=== PATIENT | female | born 1975 | race Caucasian/White ===

== ENCOUNTER 2016-10-29 19:00 | Emergency (ER) | payer BC ==
[~2016-10-29] VITALS: Ht 157.5 cm; Wt 110.6 kg
[~2016-10-29 19:00] MED LIST: AMOXICILLIN 8751 TAB PO; CLEOCIN HCL300 MG PO; MOTRIN 800800 MG/TAB PO; NAPROXEN 3375 MG/TAB PO; NO HOME MEDICATIONS; NORCO 325 MG-51 TAB PO; PERCOCET 325 MG1 TA2 PO; TUSS PO; ZITHROMAX Z PA250 MG PO
[2016-10-29 19:02] VITALS: TEMP 98
[2016-10-29 20:09] LABS: BASO % 0.3 % (0.0-2.0); EOS # 0.1 (0.0-0.7); EOS % 1.2 % (0-4.0); GRAN # 8.6 (1.4-6.5); GRAN % 77.8 % (42.2-75.2); LYMPH # 1.3 (1.2-3.4); LYMPH % 11.8 % (20.0-51.0); MEAN CELL VOLUME 64 fl (80.0-100.0); MEAN CORPUSCULAR HGB CONC 28 g/dl (33.0-37.0); MEAN PLATELET VOLUME 10.1 fl (7.4-10.4); MONO # 0.9 (0.1-0.6); MONO % 8.4 % (1.7-9.3); PH 5 (5-8); PLATELET COUNT 374 K/mm3 (130-400); RED BLOOD COUNT 5.15 M/mm3 (4.10-5.30); REDCELL DISTRIBUTION WIDTH-CV 17.3 % (11.5-14.5); SQUAMOUS EPITHELIAL 0-2 /hpf; URINE APPEARANCE Clear; URINE BACTERIA None Seen /hpf; URINE BILIRUBIN Negative (NEGATIVE); URINE BLOOD Negative (NEGATIVE); URINE COLOR Straw; URINE GLUCOSE Negative (NEGATIVE); URINE KETONE Negative (NEGATIVE); URINE RBC 0-2 /hpf; URINE UROBILINOGEN Negative (NEGATIVE); URINE WBC 0-2 /hpf; WHITE BLOOD COUNT 11.1 K/mm3 (4.8-10.8)
[2016-10-29 20:15] LABS: HEMATOCRIT 32.8 % (37.0-47.0); HEMOGLOBIN 9.1 g/dl (12.5-16.0); MEAN CORPUSCULAR HEMOGLOBIN 18 pg (27.0-31.0)
[2016-10-29 20:21] LABS: ALBUMIN 4.4 gm/dL (3.5-5.0); BILIRUBIN,TOTAL 0.6 mg/dL (0.0-1.0); C-REACTIVE PROTEIN 0.6 mg/dL (0.0-0.9); CALCIUM 9.3 mg/dL (8.4-10.2); CREATININE, serum 0.7 mg/dL (0.52-1.25); POTASSIUM 3.5 mmol/L (3.4-5.0); TOTAL PROTEIN 7.4 gm/dL (6.4-8.2)
[2016-10-29] MEDS ORDERED: NORCO 325 MG-51 TAB PO (21:59)
[2016-10-29 22:30] VITALS: BP 112/73; PULSE 72
== END 2016-10-29 22:30 | disposition home or self-care (01) ==
LOC: COL.ER 19:00
PROVIDERS: Emergency Medicine
DX: N83.291 Other ovarian cyst, right side (principal); R10.84 Generalized abdominal pain; F17.210 Nicotine dependence, cigarettes, uncomplicated
CPT/HCPCS: J1170; J2405; J7030; Q9967

== ENCOUNTER 2017-07-06 08:41 | Outpatient (RCR) | payer OTHER | END 2017-07-09 14:00 | disposition still patient (30) | LOC: WSOH 08:41 | DX: M65.841 Other synovitis and tenosynovitis, right hand (principal); X50.3XXA Overexertion from repetitive movements, initial encounter; Y99.0 Civilian activity done for income or pay; Z90.710 Acquired absence of both cervix and uterus | CPT/HCPCS: 24091; A6549 ==

== ENCOUNTER 2017-07-30 07:30 | Outpatient (RCR) | payer OTHER | END 2017-08-12 16:44 | LOC: WSOT 07:30 | DX: M67.431 Ganglion, right wrist (principal); M65.841 Other synovitis and tenosynovitis, right hand ==

== ENCOUNTER 2018-01-19 16:15 | Outpatient (RCR) | payer OTHER | END 2018-02-01 07:56 | disposition home or self-care (01) | LOC: WSOT 16:15 | DX: Z47.89 Encounter for other orthopedic aftercare (principal); Z98.890 Other specified postprocedural states; Z90.710 Acquired absence of both cervix and uterus ==

== ENCOUNTER 2018-05-08 01:41 | Emergency (ER) | payer BC ==
[~2018-05-08] VITALS: Ht 157.5 cm; Wt 120.5 kg
[2018-05-08 01:47] VITALS: TEMP 99.6
[2018-05-08 02:30] VITALS: BP 140/86; PULSE 98
== END 2018-05-08 02:40 | disposition home or self-care (01) ==
LOC: COL.ER 01:41
DX: S61.411A Laceration without foreign body of right hand, initial encounter (principal); J45.909 Unspecified asthma, uncomplicated; Z23 Encounter for immunization; F17.210 Nicotine dependence, cigarettes, uncomplicated; Y92.59 Other trade areas as the place of occurrence of the external cause; W25.XXXA Contact with sharp glass, initial encounter

== ENCOUNTER → 2018-05-26 | Outpatient (CLI) | payer BC ==
[2018-05-26 17:41] LABS: BASO % 0.3 % (0.0-2.0); EOS # 0.2 (0.0-0.7); EOS % 1.2 % (0-4.0); GRAN # 9.8 (1.4-6.5); GRAN % 75.2 % (42.2-75.2); HEMATOCRIT 49.8 % (37.0-47.0); LYMPH % 15.2 % (20.0-51.0); MEAN CELL VOLUME 87 fl (80.0-100.0); MEAN CORPUSCULAR HEMOGLOBIN 28 pg (27.0-31.0); MEAN CORPUSCULAR HGB CONC 32 g/dl (33.0-37.0); MONO % 7.7 % (1.7-9.3); PLATELET COUNT 318 K/mm3 (130-400); RED BLOOD COUNT 5.72 M/mm3 (4.10-5.30); REDCELL DISTRIBUTION WIDTH-CV 13.5 % (11.5-14.5)
[2018-05-26 17:48] LABS: ALBUMIN 4.6 gm/dL (3.5-5.0); BILIRUBIN,TOTAL 0.6 mg/dL (0.0-1.0); CALCIUM 9.8 mg/dL (8.4-10.2); CHOLESTEROL RISK RATIO 2.9; CREATININE, serum 0.66 mg/dL (0.52-1.25)
[2018-05-26 18:19] LABS: TSH w REFLEX 1.33 uIU/mL (0.465-4.680)
== END ==
LOC: COL.LAB 17:00
PROVIDERS: Family Medicine
DX: Z13.220 Encounter for screening for lipoid disorders (principal); Z13.1 Encounter for screening for diabetes mellitus; D64.9 Anemia, unspecified; I10 Essential (primary) hypertension

== ENCOUNTER → 2018-07-14 | Outpatient (CLI) | payer BC ==
[2018-07-14 18:26] LABS: CALCIUM 9.1 mg/dL (8.4-10.2); CREATININE, serum 0.68 mg/dL (0.52-1.25); MAGNESIUM 1.9 mg/dL (1.6-2.3); POTASSIUM 3.6 mmol/L (3.4-5.0)
== END ==
LOC: COL.LAB 17:20
PROVIDERS: Family Medicine
DX: R25.2 Cramp and spasm (principal)

== ENCOUNTER 2018-08-10 07:57 | Emergency (ER) | payer BC ==
[~2018-08-10] VITALS: Ht 157.5 cm; Wt 118.2 kg
[2018-08-10] MEDS ORDERED: PRINIVIL20 MG PO (10:11)
[2018-08-10] MEDS ORDERED: CHANTIX 1MG1 MG PO (10:12)
[2018-08-10 11:08] VITALS: BP 110/57; PULSE 63; TEMP 97.8
== END 2018-08-10 11:09 | disposition home or self-care (01) ==
LOC: COL.ER 07:57
DX: J06.9 Acute upper respiratory infection, unspecified (principal); I10 Essential (primary) hypertension; Z87.891 Personal history of nicotine dependence; Z88.4 Allergy status to anesthetic agent
CPT/HCPCS: J1200; J1885; J2550; J2765; J7030

== ENCOUNTER → 2018-08-19 | Outpatient (CLI) | payer BC ==
[~2018-08-19] MED LIST changes: +CHANTIX 1MG1 MG PO; +PRINIVIL20 MG PO
== END ==
LOC: COL.CARD 07:41
DX: R00.2 Palpitations (principal)

== ENCOUNTER → 2018-09-15 | Outpatient (CLI) | payer BC ==
[2018-09-15 17:58] LABS: CALCIUM 9.5 mg/dL (8.4-10.2); CREATININE, serum 0.68 mg/dL (0.52-1.25); POTASSIUM 4.4 mmol/L (3.4-5.0)
== END ==
LOC: ZCOL.LAB 17:45
PROVIDERS: Family Medicine
DX: I10 Essential (primary) hypertension (principal)

== ENCOUNTER → 2018-09-16 | Outpatient (CLI) | payer BC | LOC: ZCOL.LAB 18:11 | DX: B36.9 Superficial mycosis, unspecified (principal) ==

== ENCOUNTER → 2018-09-29 | Outpatient (CLI) | payer BC | LOC: ZCOL.LAB 16:32 | DX: H60.311 Diffuse otitis externa, right ear (principal) ==

== ENCOUNTER 2019-03-25 16:41 | Emergency (ER) | payer BC ==
[~2019-03-25] VITALS: Ht 157.5 cm; Wt 118.2 kg
[2019-03-25 16:47] VITALS: TEMP 99.2
[2019-03-25] MEDS ORDERED: CELEXA 20MG20 MG/TAB PO (16:56)
[2019-03-25 17:42] LABS: BASO % 0.2 % (0.0-2.0); EOS # 0.1 (0.0-0.7); GRAN # 9.6 (1.4-6.5); GRAN % 78.3 % (42.2-75.2); HEMOGLOBIN 14.4 g/dl (12.5-16.0); LYMPH # 1.6 (1.2-3.4); LYMPH % 12.7 % (20.0-51.0); MEAN CELL VOLUME 86 fl (80.0-100.0); MEAN CORPUSCULAR HEMOGLOBIN 28 pg (27.0-31.0); MEAN CORPUSCULAR HGB CONC 33 g/dl (33.0-37.0); MEAN PLATELET VOLUME 9.6 fl (7.4-10.4); MONO # 0.9 (0.1-0.6); MONO % 7.3 % (1.7-9.3); PLATELET COUNT 290 K/mm3 (130-400); RED BLOOD COUNT 5.12 M/mm3 (4.10-5.30); REDCELL DISTRIBUTION WIDTH-CV 13.6 % (11.5-14.5)
[2019-03-25 17:48] LABS: ALBUMIN 4.1 gm/dL (3.5-5.0); BILIRUBIN,TOTAL 0.4 mg/dL (0.0-1.0); CALCIUM 9.3 mg/dL (8.4-10.2); CREATININE, serum 0.61 (0.52-1.25); POTASSIUM 3.6 mmol/L (3.4-5.0); TOTAL PROTEIN 7.2 gm/dL (6.4-8.2)
[2019-03-25 18:58] VITALS: BP 131/62; PULSE 103
== END 2019-03-25 19:32 | disposition home or self-care (01) ==
LOC: COL.ER 16:41
PROVIDERS: Emergency Medicine
DX: T46.4X5A Adverse effect of angiotensin-converting-enzyme inhibitors, initial encounter (principal)
CPT/HCPCS: J0171; J1200; J2930; J7030; J7512

== ENCOUNTER 2019-11-25 19:27 | Emergency (ER) | payer BC ==
[~2019-11-25] VITALS: Ht 157.5 cm; Wt 118.2 kg
[~2019-11-25 19:27] MED LIST changes: +CELEXA 20MG20 MG/TAB PO
[2019-11-25 19:32] VITALS: BP 165/78
[2019-11-25] MEDS ORDERED: CHANTIX 1MG1 MG PO (19:54)
[2019-11-25 21:24] VITALS: PULSE 103; TEMP 98.6
== END 2019-11-25 21:24 | disposition home or self-care (01) ==
LOC: COL.ER 19:27
DX: J10.1 Influenza due to other identified influenza virus with other respiratory manifestations (principal); F17.210 Nicotine dependence, cigarettes, uncomplicated; F32.9 Major depressive disorder, single episode, unspecified; Z90.710 Acquired absence of both cervix and uterus
CPT/HCPCS: J1885; J7030

== ENCOUNTER 2023-09-08 07:53 | Day surgery (SDC) | payer OTHER ==
[~2023-09-08] VITALS: Ht 157.5 cm; Wt 128.7 kg
[2023-09-08] MEDS ORDERED: GLUCOPHAGE1000 MG PO (08:41)
[2023-09-08] MEDS ORDERED: HCTZ 25MG TAB25 MG PO (08:41)
[2023-09-08] MEDS ORDERED: NORVASC 10MG10 MG PO (08:42)
[2023-09-08] MEDS ORDERED: ADIPEX-P37.5 MG PO (08:43)
[2023-09-08 08:55] VITALS: BP 140/78; PULSE 90; TEMP 97.5
[2023-09-08 10:20] VITALS: BP 139/78; PULSE 84; TEMP 97.7
[2023-09-08 10:30] VITALS: BP 147/76; PULSE 80
[2023-09-08 10:45] VITALS: BP 139/66; PULSE 82
--- NOTE | 2023-09-08 11:06 | NUR ---
1020- PATIENT RETURNS TO [facility] [place] [facility] VIA CART. PT AWAKE AND ALERT. RESPIRATIONS UNLABORED. AMBULATED TO RECLINER CHAIR WITH 2:1 SBA. PT DENIES NAUSEA OR ABDOMINAL PAIN. HOOKED UP TO MONITOR AND VS OBTAINED. CALL LIGHT AT SIDE AND SIGNIFICANT OTHER PRESENT. 1029- PATIENT TOLERATING SPRITE ZERO AND MUFFIN WITH BUTTER WITHOUT NAUSEA. 1031- DR. CRABTREE IN ROOM SPEAKING WITH PATIENT. 1047- D/C INSTRUCTIONS REVIEWED WITH PATIENT. PT VERBALIZED UNDERSTANDING AND A COPY OF INSTRUCTIONS PROVIDED IN D/C FOLDER. 1158- PATIENT DRESSES SELF. 1106- PATIENT DISCHARGED FROM UNIT VIA W/C TO A PERSONAL VEHICLE. PT LEFT HOSPITAL IN STABLE CONDITION.
== END 2023-09-08 11:06 | disposition home or self-care (01) ==
LOC: SDCO 07:53
DX: Z12.11 Encounter for screening for malignant neoplasm of colon (principal); D12.0 Benign neoplasm of cecum; D12.8 Benign neoplasm of rectum; K64.0 First degree hemorrhoids; E66.9 Obesity, unspecified; Z87.891 Personal history of nicotine dependence
CPT/HCPCS: J2704; J7120

== ENCOUNTER 2023-12-24 07:05 | Emergency (ER) | payer OTHER ==
[~2023-12-24] VITALS: Ht 157.5 cm; Wt 115.9 kg
[~2023-12-24 07:05] MED LIST changes: +ADIPEX-P37.5 MG PO; +GLUCOPHAGE1000 MG PO; +HCTZ 25MG TAB25 MG PO; +NORVASC 10MG10 MG PO
[2023-12-24 07:10] VITALS: BP 160/84; PULSE 94; TEMP 97.5
[2023-12-24] MEDS ORDERED: AMOXICILLIN 8751 TAB PO (07:50)
[2023-12-24] MEDS ORDERED: oxyCODONE 5 MG TAB PO ONE (08:00)
== END 2023-12-24 08:03 | disposition home or self-care (01) ==
LOC: COL.ER 07:05
DX: K08.89 Other specified disorders of teeth and supporting structures (principal); L53.9 Erythematous condition, unspecified; Z91.040 Latex allergy status; Z87.891 Personal history of nicotine dependence